=== PATIENT | male | born 1975 | race Caucasian/White ===

== ENCOUNTER 2025-02-09 10:58 | Emergency (ER) | payer OTHER, SELFPAY ==
[2025-02-09 11:08] VITALS: BP 137/97
[2025-02-09 11:17] VITALS: BMI 25.1
--- NOTE | 2025-02-09 11:34 | ED.GENMED ---
History of Present Illness
General
Chief Complaint: Abdominal Symptoms
Source: patient and spouse
Exam Limitations: none
Time Seen by Provider: 02/09/25 11:17
Nursing documentation reviewed up to this point in time: agreed with
History of Present Illness
History of Present Illness:
49-year-old male left flank left lower abdominal pain onset 2 days ago subjective fever yesterday with some nausea seen in urgent care referred here, does have some mild trouble urinating no prior episodes, no history of stones a history of
diverticulosis that was doing some DIY yard work no prior abdominal surgery drink socially not excess no smoking
Past History
Past History
ED Past Medical History: None
ED Past Surgical History: None
Phy Exam
Physical Exam
Physical Exam:
Physical Exam
General: no apparent distress, not acutely ill
Neck: no jaundice
Heart: s1/s2 regular rate and rhythm, no murmur. equal radial pulses.
Lungs: no acute respiratory distress. clear bilaterally
Abdomen: llq tenderness
Neuro: alert and oriented. no focal neurological deficits
Skin: no rash
Psychiatric: well kept. interactive and cooperative
Extremities: no edema.
Course
Orders/Labs/Results
Orders:
Orders
02/09/25 11:23
CT Abd/pel Without Iv Or Oral Urgent
Comment:
Reason For Exam: pain
IV Insert/Care/Rem.- Treatment PRN
Complete Blood Count/With Diff Urgent
Comprehensive Metabolic Panel Urgent
Lipase Urgent
Urinalysis Reflex To Culture Urgent
0.9% Sodium Chloride 1000 ml [Nss] 1,000 ml IV BOLUS
HYDROmorphone [Dilaudid] 0.5 mg IV NOW STA
Ketorolac [Toradol] 30 mg IV NOW STA
Ondansetron Injectable [Zofran] 4 mg IV NOW STA
Vital Signs
Initial and Last Documented VS:
Initial Vital Signs
Temp Pulse Resp BP Pulse Ox
99.1 F 86 18 137/97 99
02/09/25 11:08 02/09/25 11:08 02/09/25 11:08 02/09/25 11:08 02/09/25 11:08
Last Documented Vital Signs
Temp Pulse Resp BP Pulse Ox
99.1 F 86 18 146/90 99
02/09/25 11:08 02/09/25 11:08 02/09/25 11:08 02/09/25 11:35 02/09/25 11:36
MDM/Problems Addressed
Differential Diagnosis Includes:
tics/kidney stones/muscle strain doubt AAA
MDM/Problems Addressed:
left flank pain
*Radiology
Radiology exam reviewed: radiology read reviewed
*Pulse Oximetry
SaO2: 99
Oxygen Mode of Delivery: Room air
Patient hypoxic: no
*Assurance Engineer Interpretation
Rate: normal
Interpretation: normal
Heart Rate: 78
Rhythm: sinus
*Critical Care Note
Total Time (30-74mins, 75-104mins- exclusive of procedures): Not Applicable
ED Attending Note
-
Portions of this chart may have been created with voice recognition software.� Occasional wrong word or��sound alike� substitutions may have occurred due to the inherent limitations of voice recognition software.
Discharge Plan
Interventions
Interventions:
*Risk Screen - Suicide Last Done: 02/09/25 11:10
*General Assessment Last Done: 02/09/25 11:10
*Neglect/Abuse Screening Last Done: 02/09/25 11:40
*ED- Fall Risk Assessment Last Done: 02/09/25 11:10
*ED COVID-19 Vaccine History Last Done: 02/09/25 11:40
VP-Rlraos-Gjqkjszizb Assessment Last Done: 02/09/25 11:41
Discharge Date and Time
Print Language: MOLDOVAN
[2025-02-09 11:35] VITALS: BP 146/90
[2025-02-09] MEDS: NSS 1000 IV (11:37)
[2025-02-09] MEDS: DILAUDID 0.5 MG IV (11:37)
[2025-02-09] MEDS: ZOFRAN 4 MG IV (11:37)
[2025-02-09] MEDS: TORADOL 30 MG IV (11:37)
[2025-02-09 11:45] LABS: Hematocrit 41.5 % (39.0-52.0); Hemoglobin 14.2 g/dL (13.0-18.0); Mean Corp Hgb Conc. 34.2 g/dL (33.0-37.0); Mean Corpuscular Volume 83.5 fL (80.0-94.0); Nucleated Red Blood Cells % 0 % (-); Platelet Count 222 10^3/uL (130-400); Red Cell Dist. Width 11.9 % (11.5-14.5)
[2025-02-09 11:59] LABS: ALT (SGPT) 21 U/L (0-50); AST (SGOT) 23 U/L (17-59); Albumin 5.2 g/dl (3.5-5.0); Alkaline Phosphatase 67 U/L (38-126); Blood Urea Nitrogen 19 mg/dl (9-20); Calcium 9.9 mg/dl (8.4-10.2); Carbon Dioxide 31 mmol/L (22-30); Chloride 99 mmol/L (98-107); Estimated Creatinine Clearance 50 ml/min; Glucose 140 mg/dl (70-99); Lipase 29 U/L (23-300); Potassium 4.2 mmol/L (3.5-5.1); Sodium 138 mmol/L (135-145); Total Protein 8.1 g/dl (6.3-8.2); eGFR 42.71
[2025-02-09 12:00] VITALS: BP 135/77
[2025-02-09 13:00] VITALS: BP 129/76
[2025-02-09 13:36] LABS: Urine Character Clear (Clear)
[2025-02-09 13:49] LABS: Urine Red Blood Cell 16-20 /HPF (0-2); Urine Squamous Cell 0-2 /LPF (Few); Urine White Cell 0-2 /HPF (0-5)
== END 2025-02-09 13:51 | disposition home or self-care (01) ==
LOC: EMR 10:58
PROVIDERS: EMERGENCY PHYSICIAN Emergency Medicine
DX: N13.2 Hydronephrosis with renal and ureteral calculous obstruction (principal)
CPT/HCPCS: 99284; 96374; 96375 ×2; 96361 ×2; 74176; 80053; 81003; 81015; 83690; 85025